=== PATIENT | female | born 1960 | race Caucasian/White ===

== ENCOUNTER → 2023-04-17 | Outpatient (CLI) | payer OTHER, SELFPAY ==
[2023-04-17 15:20] LABS: Color, Urine Yellow (Yellow); Glucose, Dipstick Normal (Normal); Ketone-Dipstick Negative (Negative); Leukocyte Esterase-Dipstick 100 /ul (Negative); Nitrite-Dipstick Negative (Negative); Occult Blood-Urine Negative /ul (Negative); Protein-Dipstick Negative (Negative); Urine Bilirubin Dipstick Negative (Negative); Urine Clarity Clear (Clear); Urine Urobilinogen Normal (Normal)
[2023-04-17 15:40] LABS: ALB/GLOB Ratio 0.9 RATIO (0.9-2.4); AST(SGOT) 30 U/L (15-37); Alanine Aminotransfer ALT/SGPT 55 U/L (13-56); Albumin, Serum 3.7 g/dL (3.2-5.0); Alkaline Phosphatase 77 U/L (45-117); Anion Gap 9 (5-15); BUN 12 mg/dL (7-18); BUN/Creat Ratio 17.9 RATIO (10-20); Bilirubin, Direct 0.06 mg/dL (0.00-0.30); Calcium,Total 9.2 mg/dL (8.5-10.1); Chloride 104 mmol/L (98-107); Creatinine, Serum 0.67 mg/dL (0.55-1.02); EST Glomerular Filtration Rate 94 mL/min (>60); Est Glom Filt Rate - Afr Amer 114 mL/min (>60); Free T3 2.5 pg/mL (2.18-3.98); Glucose 90 mg/dL (74-106); Potassium 3.9 mmol/L (3.5-5.1); Protein, Total 7.7 g/dL (6.4-8.2); Rheumatoid Factor < 10.0 IU/mL (<15); Sodium Level 139 mmol/L (136-145); T4 Free Direct 0.88 ng/dL (0.76-1.46); Thyroid Stim Hormone (TSH) 2.36 uIU/mL (0.358-3.74)
[2023-04-17 16:10] LABS: Erythrocyte Sedimentation Rate 26 mm/hr (0-30); Hepatitis B Surface Antibody Non-Reactive; Hepatitis C Antibody Non-Reactive (Nonreactive)
[2023-04-17 16:28] LABS: Absolute Lymphocyte Count 1.03 X10^3/uL (0.83-4.51); Absolute Neutrophil Count 3.2 X10^3/uL (2.0-7.7); Basophil# 0.06 X10^3/uL; Basophil% 1.2 % (0-1); Eosinophil# 0.33 X10^3/uL; Eosinophils% 6.6 % (0-5); Hematocrit 42.5 % (37-47); Hemoglobin 13.7 g/dL (12.0-15.0); Lymphocyte # 1.03 X10^3/ul (0.83-4.51); Lymphocyte % 20.6 % (19-41); Mean Corp Hgb Conc 32.2 g/dL (32-36); Mean Corpuscular Hgb 28.7 pg (27.0-32.0); Mean Corpuscular Volume 88.9 fL (81-99); Mean Platelet Vol. 9.4 fl (6.2-12.0); Monocyte# 0.37 X10^3/uL; Monocyte% 7.4 % (0-10); NRBC Flagged by Analyzer 0 % (0-5); Platelet Count 405 K/mm3 (150-450); RBC Distribution Width CV 15.9 % (11.6-14.6); RBC Distribution Width SD 51.5 fl (35.1-43.9); Red Blood Count 4.78 M/mm3 (4.2-5.4)
[2023-04-19 09:07] LABS: Hepatitis B Core Ab Total Negative (Negative); Thyroid Peroxidase AB 209 IU/mL (0-34)
[2023-04-20 13:07] LABS: ANTINUCLEAR ANTIBODIES DIRECT Negative (Negative); Anti-dsDNA Ab <1 IU/mL (0-9)
== END | disposition home or self-care (01) ==
LOC: MTLAB 11:46
PROVIDERS: Referring Provider Physician Assistant Medical; Visit Provider Physician Assistant Medical
DX: L50.8 Other urticaria (principal); L80 Vitiligo
CPT/HCPCS: 36415; 80053; 81002; 82248; 84439; 84443; 84481; 85025; 85652; 86038; 86225; 86376; 86431; 86704; 86706; 86803